=== PATIENT | female | born 1995 | race Caucasian/White ===

== ENCOUNTER 2017-07-11 13:43 | Outpatient (CLI) | payer OTHER ==
--- NOTE | 2017-07-11 15:14 | ULT ---
PELVIC SONOGRAM TRANSABDOMINAL IMAGING: History: Pelvic pain. Yeast infections. FINDINGS: Urinary bladder is incompletely distended. Uterus has a heterogeneous echo texture and is 5.9 cm. Erika khalida has a heterogeneous echotexture and is 5.9 cm. Endometrium is 0.6 cm. No free fluid is visible. N either ovary is well visualized. No adnexal masses are apparent. IMPRESSION: No significant abnormalities are demonstrated. POS: [facility]
== END 2017-07-11 13:44 | disposition home or self-care (01) ==
LOC: ULT 13:43
DX: N76.0 Acute vaginitis (principal)
CPT/HCPCS: 76856